=== PATIENT | female | born 1955 | race Caucasian/White ===

== ENCOUNTER 2016-06-21 13:08 | Emergency (ER) | payer MEDICARE ==
[~2016-06-21] VITALS: Ht 162.6 cm; Wt 65.0 kg
[~2016-06-21 13:08] MED LIST: DIAZ10TA89; MORP30TA89; PERCOCET
[2016-06-21 13:24] VITALS: Ht 162.6 cm; Wt 65.0 kg
[2016-06-21 14:45] VITALS: BP 117/66; PULSE 94; RESP 19; TEMP 98.6
--- NOTE | 2016-06-21 14:45 | ERD ---
ER Documentation Chief Complaint Date/Time DATE: 06/21/16 TIME: 14:43 Chief Complaint BIB [facility] FOR CHOKING EPISODE AT [facility]. NO RESP DISTRESS ON ARRIVAL TO ED HPI This is a 60-year-old female in a halfway facility who is eating a deli sandwich when she started having a difficult time swallowing the food. She said she bit off too much of the same which he was eating too fast. She said it got stuck in her throat. EMS arrived on scene and said she was awake and alert and not cyanotic or in any respiratory distress. He said they were able to use a scope to look into her throat and pulled out a lot of sandwich. She never lost consciousness never had chest pain dyspnea loss of pulse. Here she says she feels better. She did vomit on the scene most of the sandwich ROS All systems reviewed and are negative except as per history of present illness. Medications Home Meds Reported Medications Diazepam (Valium) 10 Mg Tablet 08/02/10 Oxycodone Hcl/Acetaminophen (Percocet) 1 Tab Tab 08/02/10 Morphine Sulfate* (Ms Contin*) 30 Mg Tablet.sa 08/02/10 Allergies Allergies: Coded Allergies: Sulfa (Sulfonamides) (Verified Allergy, Mild, 08/03/10) Uncoded Allergies: ALL ANTIDEPRESSANT (Allergy, Mild, 08/03/10) ANTI-DEPRESSENT MEDS (Allergy, Mild, 08/02/10) [id number] (SULFA (SULFONAMIDE ANTIBIOTICS)) (Allergy, Mild, 08/02/10) PMhx/Soc History of Surgery: Yes (TONSILITIS, APPENDECTOMY, 1970) Anesthesia Reaction: No Hx Neurological Disorder: No Hx Respiratory Disorders: No Hx Cardiac Disorders: No Hx Psychiatric Problems: No Hx Alcohol Use: Yes (WEDNESDAY OCCASIONALLY) Hx Substance Use: No Hx Tobacco Use: Yes (3 DAYS AGO) Smoking Status: Current every day smoker FmHx Family History: No coronary disease Physical Exam Vitals Vital Signs Date Time Temp Pulse Resp B/P Pulse Ox O2 Delivery O2 Flow Rate FiO2 06/21/16 13:24 98.6 91 19 116/67 90 Physical Exam Const: Well-developed, well-nourished Head: Atraumatic, normocephalic Eyes: Normal Conjunctiva, PERRLA, EOMI, normal sclera, no nystagmus ENT: Normal External Ears, Nose and Mouth, moist mucus membranes. Neck: Full range of motion. No meningismus, no lymphadenopathy. Resp: Clear to auscultation bilaterally, no wheezing, rhonchi, rales Cardio: Regular rate and rhythm, no murmurs, S1 S2 present Abd: Soft, non tender x 4, non distended. Normal bowel sounds, no guarding or rebound, no pulsitile abdominal masses or bruits Skin: No petechiae or rashes, no ecchymosis , no maculopapular rash Back: No midline or flank tenderness Ext: No cyanosis, or edema, FROM x 4, normal inspection, neurovascularly intact x 4 Neur: Awake and alert, STR 5/5 x 4, sensation intact x 4, no focal findings, cerebellum intact Psych: Normal Mood and Affect Procedures/MDM Patient was given p.o. trial of liquids and solids which he tolerated well. The patient just bit off more than she could chew and swallow she is asymptomatic now discharge home. Room air oxygenation 100% Departure Diagnosis: Primary Impression: Problem with swallowing or mastication Condition: Stable Patient Instructions: Understanding Dysphagia Referrals: JUMA CORONA MD (PCP) BEBE SHIRLEY DO Jun 21, 2016 14:45
[2016-06-21] MEDS ORDERED: ONDANSETRON (ODT) 4 MG TAB ODT STA (14:59)
== END 2016-06-21 16:15 | disposition home or self-care (01) ==
LOC: E/R 13:08
DX: R13.10 Dysphagia, unspecified (principal); F17.210 Nicotine dependence, cigarettes, uncomplicated
CPT/HCPCS: 99283